=== PATIENT | male | born 1940 | race Caucasian/White ===

== ENCOUNTER → 2016-10-04 | Outpatient (CLI) | payer MEDICARE ==
[~2016-10-04] MED LIST: ACLI400A2 INH; ALBU2.5V NPPB; ASPI325T4 PO; BUME1TAB21 PO; ETAN50PE SQ; FOLI-17 PO; FURO-93 PO; LISI-167 PO; METH2.5T PO; MINO100C PO; NABU750T PO; OXYC5CAP4 PO; POTA20TA89 PO; POTA8TAB PO; PRED5TAB PO
[2016-10-04 15:32] LABS: HEMOGLOBIN 15.9 g/dL (13.7-18.0)
[2016-10-04 15:42] LABS: BLOOD UREA NITROGEN 25 mg/dL (7-18)
== END | disposition home or self-care (01) ==
LOC: STAR 14:13
PROVIDERS: ATTEND Orthopaedic Surgery Orthopaedic Surgery of the Spine
DX: Z01.818 Encounter for other preprocedural examination (principal); I51.7 Cardiomegaly; J84.9 Interstitial pulmonary disease, unspecified; S32.028A Other fracture of second lumbar vertebra, initial encounter for closed fracture; X58.XXXA Exposure to other specified factors, initial encounter; Y93.89 Activity, other specified; Y92.89 Other specified places as the place of occurrence of the external cause; Y99.8 Other external cause status
CPT/HCPCS: 36415; 71020; 80048; 81003; 85025; 85610; 85651; 85730

== ENCOUNTER 2016-12-14 10:10 | Inpatient (IN) | payer MEDICARE ==
[~2016-12-14] VITALS: Ht 185.4 cm; Wt 121.8 kg
[2016-12-14] MEDS ORDERED: ALBUTEROL SULFATE 2.5 MG/3 ML NPPB ONE (11:15)
[2016-12-14] MEDS ORDERED: ALBUTEROL/IPRATROPIUM 2.5MG/0.5MG, 3 ML NEB ONE (11:15)
[2016-12-14] MEDS ORDERED: methylPREDNISolone SOD SUCC 125 MG/2 ML ONE (11:27)
[2016-12-14] MEDS ORDERED: methylPREDNISolone SOD SUCC 125 MG/2 ML IVP ONE (11:30)
[2016-12-14] MEDS ORDERED: SODIUM CHLORIDE FLUSH 10ML SYR IVF ONE (11:30)
[2016-12-14] MEDS ORDERED: ALBUTEROL/IPRATROPIUM 2.5MG/0.5MG, 3 ML NPPB SCH (11:30)
[2016-12-14] MEDS ORDERED: ALBUTEROL/IPRATROPIUM 2.5MG/0.5MG, 3 ML ONE (11:31)
[2016-12-14] MEDS ORDERED: ALBUTEROL SULFATE 2.5MG/0.5ML ONE (11:31)
[2016-12-14 12:04] LABS: BLOOD UREA NITROGEN 12 mg/dL (7-18)
[2016-12-14 12:09] LABS: DIFF TOTAL CELLS COUNTED 100 CELL DIFF
[2016-12-14 12:11] LABS: ASPARTATE AMINO TRANSFERASE 28 U/L (15-37); IS PT STATUS REG ER OR PRE ER? YES; VERIFY COUNTS? YES
[2016-12-14 12:12] LABS: POLYCHROMASIA 1+
[2016-12-14] MEDS ORDERED: CEFTRIAXONE 1,000 MG in SODIUM CHLORIDE 0.9% 50 ML IV ONE (13:30)
[2016-12-14] MEDS ORDERED: AZITHROMYCIN 500 MG in SODIUM CHLORIDE 0.9% 250 ML IV ONE (13:30)
[2016-12-14] MEDS ORDERED: FEXO180T72 PO (14:04)
[2016-12-14] MEDS ORDERED: TERI2.4P SQ (14:04)
[2016-12-14] MEDS ORDERED: ALBUTEROL SULFATE 2.5 MG/3 ML NPPB PRN (14:30)
[2016-12-14] MEDS ORDERED: morphine SULFATE 10 MG/ML, 1ML IVPush PRN (14:30)
[2016-12-14] MEDS: methylPREDNISolone SOD SUCC 125 MG/2 ML IVPush SCH ×2 (14:30→23:02)
[2016-12-14] MEDS ORDERED: GUAIFENESIN/DM 200-20MG, 10ML UDC PO PRN (14:30)
[2016-12-14] MEDS ORDERED: ACETAMINOPHEN 325 MG TABLET PO PRN (14:30)
[2016-12-14] MEDS ORDERED: ENALAPRILAT 1.25 MG/ML, 2ML IVPush PRN (14:30)
[2016-12-14] MEDS ORDERED: ALBUTEROL/IPRATROPIUM 2.5MG/0.5MG, 3 ML HHN SCH (14:30)
[2016-12-14] MEDS ORDERED: TRAZODONE 50MG TABLET PO PRN (14:30)
[2016-12-14] MEDS ORDERED: HYDROcodone/APAP 5/325 TABLET PO PRN (14:30)
[2016-12-14] MEDS ORDERED: ONDANSETRON ODT 4 MG PO PRN (14:30)
[2016-12-14] MEDS ORDERED: DOCUSATE 100 MG CAPSULE PO PRN (14:30)
[2016-12-14 17:01] VITALS: BP 130/70
[2016-12-14] MEDS: ENOXAPARIN 40 MG/0.4 ML SQ SCH (17:28)
[2016-12-14 18:34] VITALS: BP 151/72
[2016-12-15 03:15] VITALS: BP 122/55
[2016-12-15 05:32] LABS: BLOOD UREA NITROGEN 16 mg/dL (7-18)
[2016-12-15] MEDS: methylPREDNISolone SOD SUCC 125 MG/2 ML IVPush SCH ×3 (06:05→22:29)
[2016-12-15] MEDS: ALBUTEROL/IPRATROPIUM 2.5MG/0.5MG, 3 ML HHN SCH ×4 (07:10→19:45)
[2016-12-15 09:18] VITALS: BP 141/66
[2016-12-15 09:44] VITALS: BP 141/66
[2016-12-15] MEDS: FUROSEMIDE 40 MG/4 ML IV SCH (11:27)
[2016-12-15] MEDS: LORATADINE 10 MG TABLET PO SCH (11:31)
[2016-12-15] MEDS ORDERED: CEFTRIAXONE 1,000 MG IM SCH (14:30)
[2016-12-15] MEDS: ENOXAPARIN 40 MG/0.4 ML SQ SCH (15:03)
[2016-12-15] MEDS: AZITHROMYCIN 500 MG in SODIUM CHLORIDE 0.9% 250 ML IV SCH (15:08)
[2016-12-15 16:14] VITALS: BP 124/65
[2016-12-15] MEDS: CEFTRIAXONE 1,000 MG in SODIUM CHLORIDE 0.9% 50 ML IV SCH (16:26)
[2016-12-15 19:56] VITALS: BP 125/62
[2016-12-16 05:05] VITALS: BP 119/54
[2016-12-16] MEDS: methylPREDNISolone SOD SUCC 125 MG/2 ML IVPush SCH ×3 (06:13→21:33)
[2016-12-16 06:40] VITALS: BP 129/56
[2016-12-16] MEDS: ALBUTEROL/IPRATROPIUM 2.5MG/0.5MG, 3 ML HHN SCH ×4 (07:05→19:55)
[2016-12-16] MEDS: FUROSEMIDE 40 MG/4 ML IV SCH (07:50)
[2016-12-16] MEDS: LORATADINE 10 MG TABLET PO SCH (07:50)
[2016-12-16] MEDS ORDERED: SODIUM CHLORIDE NASAL SPRAY 45ML BOTTLE NAS PRN (10:00)
[2016-12-16] MEDS: GUAIFENESIN ER 600 MG TABLET PO SCH ×2 (11:15→19:54)
[2016-12-16 12:55] VITALS: BP 136/61
[2016-12-16] MEDS: AZITHROMYCIN 500 MG in SODIUM CHLORIDE 0.9% 250 ML IV SCH (14:21)
[2016-12-16] MEDS: ENOXAPARIN 40 MG/0.4 ML SQ SCH (14:22)
[2016-12-16] MEDS: CEFTRIAXONE 1,000 MG in SODIUM CHLORIDE 0.9% 50 ML IV SCH (16:02)
[2016-12-16 20:11] VITALS: BP 145/76
[2016-12-17 04:22] VITALS: BP 130/70
[2016-12-17] MEDS: methylPREDNISolone SOD SUCC 125 MG/2 ML IVPush SCH (06:01)
[2016-12-17] MEDS: ALBUTEROL/IPRATROPIUM 2.5MG/0.5MG, 3 ML HHN SCH ×2 (06:55→10:59)
[2016-12-17 07:22] VITALS: BP 125/69
[2016-12-17] MEDS: LORATADINE 10 MG TABLET PO SCH (08:39)
[2016-12-17] MEDS: GUAIFENESIN ER 600 MG TABLET PO SCH (08:39)
[2016-12-17] MEDS ORDERED: BUMETANIDE 1 MG TABLET PO SCH (09:00)
[2016-12-17] MEDS ORDERED: CEFD300C37 PO (11:54)
[2016-12-17] MEDS ORDERED: AZIT500T77 PO (11:54)
[2016-12-17] MEDS ORDERED: GUAI600T22 PO (11:54)
[2016-12-17] MEDS ORDERED: BUME1TAB21 PO (11:54)
[2016-12-17] MEDS ORDERED: PRED10TA PO (11:54)
[2016-12-17] MEDS ORDERED: LORA10TA75 PO (11:54)
[2016-12-17 13:35] VITALS: BP 135/76
== END 2016-12-17 14:27 | disposition home or self-care (01) | DRG 291 ==
LOC: ED 13:19 → EDIP 13:20 → ED 13:27 → 3NE 16:10
PROVIDERS: ADMIT Internal Medicine; ATTEND Internal Medicine
PROC: 5A09357 Assistance with Respiratory Ventilation, Less than 24 Consecutive Hours, Continuous Positive Airway Pressure (ICD-10-PCS; principal; 2016-12-14)
DX: I11.0 Hypertensive heart disease with heart failure (principal); J96.21 Acute and chronic respiratory failure with hypoxia; J18.9 Pneumonia, unspecified organism; J44.0 Chronic obstructive pulmonary disease with (acute) lower respiratory infection; J44.1 Chronic obstructive pulmonary disease with (acute) exacerbation; I50.33 Acute on chronic diastolic (congestive) heart failure; M06.9 Rheumatoid arthritis, unspecified; G47.33 Obstructive sleep apnea (adult) (pediatric); G89.29 Other chronic pain; M54.9 Dorsalgia, unspecified; I87.2 Venous insufficiency (chronic) (peripheral); E66.9 Obesity, unspecified; K21.9 Gastro-esophageal reflux disease without esophagitis; L40.50 Arthropathic psoriasis, unspecified; M81.0 Age-related osteoporosis without current pathological fracture; K40.90 Unilateral inguinal hernia, without obstruction or gangrene, not specified as recurrent; Z77.098 Contact with and (suspected) exposure to other hazardous, chiefly nonmedicinal, chemicals; Z79.52 Long term (current) use of systemic steroids; Z87.891 Personal history of nicotine dependence; Z99.81 Dependence on supplemental oxygen; Z90.49 Acquired absence of other specified parts of digestive tract; Z88.8 Allergy status to other drugs, medicaments and biological substances; Z68.35 Body mass index [BMI] 35.0-35.9, adult
CPT/HCPCS: 36415; 71010; 80048; 80053; 80076; 83605; 83880; 84484; 85025; 87040; 93005; 93306; 94640; 94660; 96365; 96366; 96368; 96375; J0456; J0696; J1650; J1940; J7613; J7620; J2930; J7050

== ENCOUNTER → 2018-08-14 | Outpatient (CLI) | payer MEDICARE ==
[~2018-08-14] MED LIST changes: +ASPI325T17 PO; -ASPI325T4 PO; +AZIT500T5 PO; +CEFD300C37 PO; +FEXO180T72 PO; +GUAI600T31 PO; +LORA10TA75 PO; +OXYC5CAP2 PO; -OXYC5CAP4 PO; +PRED10TA PO; +TERI2.4P SQ
== END | disposition home or self-care (01) ==
LOC: CFH 13:13
PROVIDERS: ATTEND Family Medicine
DX: M25.551 Pain in right hip (principal)

== ENCOUNTER → 2018-09-16 | Outpatient (CLI) | payer MEDICARE | END | disposition home or self-care (01) | LOC: CFH 12:02 | PROVIDERS: ATTEND Orthopaedic Surgery | DX: M47.816 Spondylosis without myelopathy or radiculopathy, lumbar region (principal); M47.817 Spondylosis without myelopathy or radiculopathy, lumbosacral region | CPT/HCPCS: 72100; 72110 ==